=== PATIENT | female | born 1975 | race Hispanic/Latino ===

== ENCOUNTER 2024-01-14 16:26 | Emergency (ER) | payer OTHER ==
[~2024-01-14] VITALS: Ht 157.5 cm; Wt 64.0 kg
[2024-01-14 16:49] VITALS: BP 170/98; PULSE 107; RESP 16; TEMP 98.3; O2SAT 98
[2024-01-14] MEDS: metoCLOPRAmide 10 MG/2 ML VIAL IVP ONE (18:26)
[2024-01-14] MEDS: Solu-medROL 125MG VIAL IVP ONE (18:26)
[2024-01-14] MEDS: CYCLOBENZAPRINE HCL 10 MG TABLET PO ONE (18:27)
[2024-01-14] MEDS: ketOROlac 30MG VIAL (30MG/ML) IVP ONE (18:27)
== END 2024-01-14 19:33 | disposition home or self-care (01) ==
LOC: EDH 16:26
DX: G43.009 Migraine without aura, not intractable, without status migrainosus (principal); E78.00 Pure hypercholesterolemia, unspecified; Z90.710 Acquired absence of both cervix and uterus; Z90.49 Acquired absence of other specified parts of digestive tract
CPT/HCPCS: 99284; 96374; 96375; J2919; J1885; J2765